=== PATIENT | male | born 1940 | race Caucasian/White ===

== ENCOUNTER → 2016-10-04 12:54 | Outpatient (CLI) | payer MEDICARE, OTHER ==
[2014-09-04 08:52] VITALS: BMI 32.1
[~2016-10-04 12:54] MED LIST: ASPIRIN 81 MG E81 MG PO; CARDURA4 MG PO; IBUPROFEN400 MG PO; MIRAPEX0.125 MG PO; MIRAPEX0.25 MG PO; PAXIL30 MG; PLAVIX75 MG PO; PRAVACHOL20 MG PO; TRAZODONE HCL150 MG PO; TYLENOL 8 HOUR650 MG; ZESTRIL40 MG
== END | disposition home or self-care (01) ==
LOC: D.MRI 12:54
DX: M54.16 Radiculopathy, lumbar region (principal)

== ENCOUNTER 2018-03-24 10:43 | Emergency (ER) | payer MEDICARE, MEDICAID ==
[~2018-03-24] VITALS: Ht 180.3 cm; Wt 106.8 kg
[2018-03-24 10:50] VITALS: Ht 180.3 cm; Wt 106.8 kg
[2018-03-24 11:18] LABS: BASOPHILS 0.3 % (0-2); HEMATOCRIT 42.1 % (42.0-54.0); HEMOGLOBIN 13.9 g/dL (13.5-17.5); IMMATURE GRANULOCYTES 0.2 % (0-5); LYMPHOCYTES 37.3 % (15-50); MCV 90.9 fL (80.0-100.0); MONOCYTES 8.3 % (2-11); NEUTROPHILS 50.9 % (40-80); PLATELET COUNT 193 10x3/uL (130-400); RBC 4.63 10x6/uL (4.20-6.10); RDW 13.7 % (11.5-14.5); WBC 6.3 10x3/uL (4.8-10.8)
[2018-03-24 11:29] LABS: ALBUMIN 3.5 g/dL (3.4-5.0); ALKALINE PHOSPHATASE 65 U/L (46-116); ALT (SGPT) 16 U/L (10-68); BILIRUBIN - TOTAL 0.37 mg/dL (0.2-1.3); CALC OSMOLALITY 286 mosm/kg (275-300); CALCIUM 8.8 mg/dL (8.5-10.1); CARBON DIOXIDE 28.4 mmol/L (21.0-32.0); CHLORIDE - SERUM 106 mmol/L (98-107); CREATININE - SERUM 1.7 mg/dL (0.6-1.3); GLUCOSE 92 mg/dL (74-106); POTASSIUM - SERUM 4.1 mmol/L (3.5-5.1); PROTEIN - SERUM 7.5 g/dL (6.4-8.2); SODIUM 141 mmol/L (136-145); UREA NITROGEN 30 mg/dL (7-18); eGFR NON AFRICAN AMERICAN 42 mL/min (90-120)
[2018-03-24 11:36] LABS: APTT 28.3 SECONDS (22.8-39.4); INR 1.08 (0.85-1.17); PROTIME 13.5 SECONDS (11.6-15.0)
[2018-03-24 11:41] LABS: CKMB 4.1 U/L (0.0-3.6); CREATINE KINASE 186 UL (21-232); PRO BNP 28 pg/mL (0-450)
[2018-03-24 11:42] LABS: TROPONIN-I < 0.017 ng/mL (0.000-0.060)
[2018-03-24] MEDS ORDERED: ISOSORBIDE MONO30 M1 PO (12:23)
[2018-03-24 12:42] VITALS: BP 147/75
== END 2018-03-24 12:45 | disposition home or self-care (01) ==
LOC: D.ER 10:43
PROVIDERS: Family Medicine
DX: R06.09 Other forms of dyspnea (principal); R07.9 Chest pain, unspecified; N28.9 Disorder of kidney and ureter, unspecified; R53.1 Weakness; I10 Essential (primary) hypertension; G47.30 Sleep apnea, unspecified; N42.9 Disorder of prostate, unspecified; I49.3 Ventricular premature depolarization; I45.10 Unspecified right bundle-branch block

== ENCOUNTER → 2019-01-02 09:46 | Outpatient (CLI) | payer MEDICARE, MEDICAID ==
[2018-03-24 10:50] VITALS: BMI 32.8
[~2019-01-02 09:46] MED LIST changes: +ISOSORBIDE MONO30 M1 PO
--- NOTE | 2019-01-04 08:12 | EC ---
PATIENT:AN JONES DATE OF SERVICE: 01/02/19 SEX: M MEDICAL RECORD: [id number] DATE OF : 42 LOCATION:D.[facility] AGE OF PATIENT: 78 ADMISSION DATE: 01/02/19 REFERRING PHYSICIAN: INTERPRETING PHYSICIAN: FRANKI VARNER MD ECHOCARDIOGRAM REPORT ECHO CHARGES 4 ECHO COMPLETE Date: 01/02/19 CLINICAL DIAGNOSIS: CAD/SSESS EF AND VALVES, HX OF AFIB/HTN ECHOCARDIOGRAPHIC MEASUREMENTS (adult normal given) AC root (d.<3.7cm) 3.8 cm LV Septum d (<1.2 cm> 1.6 cm Valve Excursion 2.0 cm LV Septum (systole) 1.8 cm Left Atria (s.<4.0cm> 4.5 cm LVPW d(<1.2cm) 1.8 cm RV (d.<2.3cm) 4.6 cm LVPW (sytole) 2.0 cm LV diastole(<5.6CM) 5.3 cm MV E-F(>70mm/sec) cm LV systole 3.2 cm LVOT Diameter 2.1 cm MV exc.(>10mm) 1.7 cm Est.ejection fraction (50-75%) % DOPPLER: LVIT cm/sec A 86.0 cm/sec E 68.0 cm/sec LA cm/sec RVSP 24 mmHg LVOT 90 cm/sec AOP1/2T m/s Asc. Ao 151 cm/sec RVOT 80 cm/sec RA cm/sec PA 136 cm/sec AV Gradient Peak 9.14 mmHg AV Mean 4.19 mmHg AV Area 2.3 cm MV Gradient Peak 4.00 mmHg MV Mean 1.11 mmHg MV Area cm COMMENTS: Carpenter Cradle And Dolly: 2 MACY BRISENO Potato Grader: 3 Dr. Pratt TAPE# PACS Pericardial Effusion N DATE OF SERVICE: Adequate 2D, color flow imaging, spectral Doppler, and M-mode. LVH is present. LV internal dimensions are normal. Wall motion is normal. EF greater than or equal to 55%. Aortic valve is sclerosed without stenosis by Doppler interrogation. Left atrium is dilated at 4.5 cm. Mitral valve shows no prolapse. Mild MR. Right-sided chambers is grossly. Mild TR. TRANSINT:[id number] Voice Confirmation ID: [id number] DOCUMENT ID: [id number] ECHOCARDIOGRAM REPORT [id number] AN JONES,FRANKI Parkinson MD at 0812 CC: [id number] DICTATION DATE: 01/03/19 1342 CHIEF TALENT OFFICER: 01/03/192101 DEP CLI 01/02/19 [place] [id number] [place] [id number]
== END | disposition home or self-care (01) ==
LOC: D.HCCECHO 09:46 → D.HCCARDIO 10:00 → D.HCCECHO 10:00
PROVIDERS: ATTEND Internal Medicine Interventional Cardiology
DX: I25.10 Atherosclerotic heart disease of native coronary artery without angina pectoris (principal)

== ENCOUNTER 2019-02-13 09:26 | Day surgery (SDC) | payer MEDICARE, MEDICAID ==
[2019-02-12 12:04] LABS: HEMATOCRIT 42.7 % (42.0-54.0); HEMOGLOBIN 14.2 g/dL (13.5-17.5); MCH 31.3 pg (26.0-34.0); MCHC 33.3 g/dL (31.0-37.0); MCV 94.1 fL (80.0-100.0); MEAN PLATELET VOLUME 9.3 fL (7.4-10.4); RBC 4.54 10x6/uL (4.20-6.10); RDW 13.8 % (11.5-14.5); WBC 6.6 10x3/uL (4.8-10.8)
[~2019-02-13] VITALS: Ht 180.3 cm; Wt 103.4 kg
[2019-02-13 07:22] VITALS: BP 128/65; Ht 180.3 cm; Wt 103.4 kg
[~2019-02-13 09:26] MED LIST changes: +GABAPENTIN100 MG PO; -PAXIL30 MG; +PAXIL40 MG PO; +SEROQUEL50 MG PO; +SINEMET 25-1001 EAC1 PO; -ZESTRIL40 MG; +ZESTRIL40 MG PO
--- NOTE | 2019-02-13 10:55 | OP ---
PATIENT NAME: AN JONES MEDICAL RECORD: [id number] :42 LOCATION:D.OPS ADMISSION DATE: SURGEON: HÉCTOR JIMENEZ MD DATE OF OPERATION: 02/13/2019 SURGEON: Héctor Jimenez MD. ANESTHESIA: TIVA by René Martinez CRNA. DIAGNOSES: Elevated PSA of 5.04 (01/05/2019), bladder outlet obstruction. PROCEDURE: Cystoscopy, transrectal ultrasound (TRUS), and prostate biopsy SPECIMEN: Prostate biopsy cores. FINDINGS: On cystoscopy, bilateral lateral lobe hyperplasia of the prostate with a long prostatic urethra. No median lobe seen. There is a trabeculated bladder without bladder tumors. Single ureteral orifices are seen bilaterally. On transrectal ultrasound, he has a 73-gram prostate with a very tall anterior posterior dimension. Internal hypoechoic areas are seen in various areas of the prostate. BLOOD LOSS: Minimal. CLINICAL HISTORY: This is a 78-year-old male, who was referred with an elevated PSA of 5.04. He has obstructive voiding symptoms including urge incontinence with hesitancy, slow urinary flow and postvoid dribbling. He has nocturia times 2. IPSS score was 26 and quality of life score is 5. There is no family history of prostate cancer. On digital rectal examination, he has a 70-gram prostate with no nodules palpated. He is allergic to no medications. He was given Ancef supervising floorperson to the OR. DESCRIPTION OF PROCEDURE: The patient was given IV sedation. He was then placed into lithotomy position and prepped and draped. A 17-Yi cystoscope with 30-degree lens was used for visualization. Findings are as outlined above. The scope was then used to empty the bladder and then the scope was removed. We then introduced the transrectal ultrasound probe. Prostate size measurements were obtained and we found a very large gland at 73 grams. Sextant biopsies were then obtained with at least 3 cores from each sextant. Once all the specimens were obtained, then the procedure was terminated. I will see the patient in followup next week to review the pathology with him. TRANSINT:[id number] Voice Confirmation ID: [id number] DOCUMENT ID: [id number] HÉCTOR JIMENEZ MD at 1051 CC: [id number] DICTATION DATE: 02/13/19 1029 ACCOUNTING TECHNICIAN: 02/13/19 1042 [facility] [address] [place] [id number]
--- NOTE | 2019-02-13 13:00 | NUR ---
1140 IV COMLPLETED & DC'ED WITH CATH INTACT. DRESSING. Rhys RIVERA R.N. 1155 DRESSED, AWAKE & ALERT. GIVEN DISCHARGE INFORMATION INCLUDING: MED REC, RTC APPT, [facility] D/C INSTRUCTIONS & POST PROSTATE BIOPSY & CYSTOSCOPY D/C INSTRUCTIONS. PT VOICED UNDERSTANDING. TO PRIVATE CAR PER WHEELCHAIR BY STAFF. HOME WITH MRS. JONES. Rhys RIVERA R.N.
[2019-03-14] MEDS ORDERED: SEROQUEL50 MG PO (07:58)
== END 2019-02-13 11:55 | disposition home or self-care (01) ==
LOC: D.OPS 09:26
PROVIDERS: Anesthesiology; ATTEND Urology
DX: N32.0 Bladder-neck obstruction (principal); R97.20 Elevated prostate specific antigen [PSA]

== ENCOUNTER 2019-03-15 07:50 | Day surgery (SDC) | payer MEDICARE, MEDICAID ==
[2019-03-14 08:42] LABS: HEMATOCRIT 40.8 % (42.0-54.0); HEMOGLOBIN 13.2 g/dL (13.5-17.5); MCHC 32.4 g/dL (31.0-37.0); MCV 95.8 fL (80.0-100.0); MEAN PLATELET VOLUME 9.7 fL (7.4-10.4); RBC 4.26 10x6/uL (4.20-6.10); RDW 14.1 % (11.5-14.5); WBC 4.2 10x3/uL (4.8-10.8)
[~2019-03-15] VITALS: Ht 180.3 cm; Wt 102.1 kg
[2019-03-15 08:21] VITALS: Ht 180.3 cm; Wt 102.1 kg
--- NOTE | 2019-03-15 11:06 | OP ---
PATIENT NAME: AN JONES MEDICAL RECORD: [id number] :42 LOCATION:D.OPS ADMISSION DATE: SURGEON: HÉCTOR JIMENEZ MD DATE OF OPERATION: 03/15/2019 SURGEON: Héctor Jimenez MD ANESTHESIA: TIVA by Modesto Buenrostro CRNA DIAGNOSES: Obstructive benign prostatic hyperplasia, Parkinson's disease. PSA 5.04. Transrectal ultrasound shows a 73 gram prostate. IPSS is 26. Quality of life score is 5. PROCEDURE: UroLift times 6. FINDINGS: Long obstructive bilateral lateral lobes of the prostate. No median lobe. Prostatic urethra is vasculature. There are single ureteral orifices bilaterally without bladder tumors being seen. The bladder mucosa was inflamed. There are trabeculations, cellules, and diverticula in the bladder wall. ESTIMATED BLOOD LOSS: Minimal. CLINICAL HISTORY: This is a 78-year-old male with Parkinson's disease. He had an elevated PSA of 5.04 and he underwent a transrectal ultrasound, cystoscopy and prostate biopsy. The findings are as outlined above. The biopsy was benign. He has significant voiding symptoms and he wishes to have the UroLift procedure done. He is not allergic to any medications. He was given Ancef 2 grams IV concrete stone finisher to the OR. DESCRIPTION OF PROCEDURE: The patient was given IV sedation. Even though he was fully sedated, he continued to have irregular movements of his legs due to his Parkinson's disease. The UroLift scope was introduced. Findings are as outlined above. We placed 2 units 1.5 cm distal to the bladder neck with 1 unit being placed on each side at the anterolateral sulcus. Then, we placed 2 more units at the level of the verumontanum. These were placed at the anterolateral sulcus with 1 unit being placed on each side. Looking in with the obturator, there was still an obstruction in the mid urethra. We placed 2 units in the mid urethra at the mid distance from anterior to posterior. One unit was placed on each side. This now created a nice urethral channel. Due to the vascularity of the prostate, there was some bleeding. I inserted a 16-Kiswahili Srinivasan catheter without any issues. This was put to bag drainage. The balloon has 10 cc of sterile water in it. He will be going home with the Srinivasan catheter and I will see him next week to remove the Srinivasan catheter for a voiding trial. TRANSINT:[id number] Voice Confirmation ID: [id number] DOCUMENT ID: [id number] HÉCTOR JIMENEZ MD at 1106 CC: [id number] DICTATION DATE: 03/15/19 1025 PLANT ATTENDANT OR ASSISTANT OPERATOR: 03/15/19 1039 [facility] [address] [place] [address]
--- NOTE | 2019-03-15 14:52 | NUR ---
1021-REC'D FROM SURGERY. DROWSY,EASILY AROUSED,DENIES PAIN,VSS. IV PATENT AT KVO. BA DRAINING AT GRAVITY,RED URINE.
--- NOTE | 2019-03-15 14:56 | NUR ---
1212- IV REMOVED WITH CATH INTACT,DISPOSED INTO SHARPS,COVERED SITE WTIH BANDAID.
--- NOTE | 2019-03-15 14:58 | NUR ---
1235-DRESSED,VSS.DENIES PAIN. BA PATENT DRAINING REDDISH URINE AT O. REVIEWED POST OPERATIVE INSTRUCTIONS WITH PT AND SPOUSE. VERBALIZED UNDERSTANDING.ESCORTED OUT VIA W/C WITH SPOUSE AWAITING TO DRIVE HOME.
== END 2019-03-15 12:35 | disposition home or self-care (01) ==
LOC: D.OPS 07:50
PROVIDERS: Anesthesiology; ATTEND Urology
DX: N40.1 Benign prostatic hyperplasia with lower urinary tract symptoms (principal); N13.8 Other obstructive and reflux uropathy; G20 Parkinson's disease; K21.9 Gastro-esophageal reflux disease without esophagitis; I10 Essential (primary) hypertension

== ENCOUNTER → 2019-04-03 09:48 | Outpatient (CLI) | payer MEDICARE, MEDICAID ==
[2019-03-15 08:21] VITALS: BMI 31.4
[2019-04-03 10:26] LABS: BASOPHILS 0.2 % (0-2); EOSINOPHILS 1.8 % (0-7); HEMATOCRIT 39.5 % (42.0-54.0); HEMOGLOBIN 12.9 g/dL (13.5-17.5); IMMATURE GRANULOCYTES 0.4 % (0-5); LYMPHOCYTES 42.2 % (15-50); MCHC 32.7 g/dL (31.0-37.0); MEAN PLATELET VOLUME 9.5 fL (7.4-10.4); MONOCYTES 9.5 % (2-11); NEUTROPHILS 45.9 % (40-80); PLATELET COUNT 210 10x3/uL (130-400); RBC 4.16 10x6/uL (4.20-6.10); WBC 5.1 10x3/uL (4.8-10.8)
== END | disposition home or self-care (01) ==
LOC: D.LAB 09:48
PROVIDERS: ATTEND Urology
DX: R31.0 Gross hematuria (principal)

== ENCOUNTER → 2019-04-13 17:07 | Outpatient (CLI) | payer MEDICARE, MEDICAID ==
[2019-03-15 08:21] VITALS: BMI 31.4
== END | disposition home or self-care (01) ==
LOC: D.LABREF 17:07
PROVIDERS: ATTEND Urology
DX: R31.9 Hematuria, unspecified (principal)

== ENCOUNTER 2019-06-23 08:39 | Inpatient (IN) | payer MEDICARE, MEDICAID ==
[~2019-06-23] VITALS: Ht 180.3 cm; Wt 101.8 kg
--- NOTE | 2019-06-23 08:53 | NUR ---
SAT 88% ON RA, PLACED ON 2LPM NC
[2019-06-23 09:30] LABS: BASOPHILS 0.1 % (0-2); EOSINOPHILS 0.6 % (0-7); HEMATOCRIT 32.3 % (42.0-54.0); HEMOGLOBIN 10.3 g/dL (13.5-17.5); IMMATURE GRANULOCYTES 1.4 % (0-5); LYMPHOCYTES 43.1 % (15-50); MCH 31.2 pg (26.0-34.0); MCHC 31.9 g/dL (31.0-37.0); MCV 97.9 fL (80.0-100.0); MEAN PLATELET VOLUME 9.4 fL (7.4-10.4); MONOCYTES 9.8 % (2-11); PLATELET COUNT 168 10x3/uL (130-400); RDW 14.3 % (11.5-14.5); WBC 7.2 10x3/uL (4.8-10.8)
[2019-06-23 09:36] LABS: APTT 29.8 SECONDS (22.8-39.4); INR 1.12 (0.85-1.17); PROTIME 14.4 SECONDS (11.6-15.0)
[2019-06-23 09:44] LABS: CALC OSMOLALITY 287 mosm/kg (275-300); CALCIUM 8.8 mg/dL (8.5-10.1); CARBON DIOXIDE 28.5 mmol/L (21.0-32.0); CHLORIDE - SERUM 103 mmol/L (98-107); CREATININE - SERUM 2.9 mg/dL (0.6-1.3); GLUCOSE 94 mg/dL (74-106); POTASSIUM - SERUM 4.7 mmol/L (3.5-5.1); SODIUM 136 mmol/L (136-145); UREA NITROGEN 56 mg/dL (7-18); eGFR NON AFRICAN AMERICAN 22 mL/min (90-120)
[2019-06-23 09:46] VITALS: BP 169/82
[2019-06-23 10:01] LABS: ALBUMIN 3.1 g/dL (3.4-5.0); ALKALINE PHOSPHATASE 78 U/L (30-120); ALT (SGPT) 33 U/L (10-68); BILIRUBIN - TOTAL 0.41 mg/dL (0.2-1.3); CKMB 5.5 U/L (0.0-3.6); CREATINE KINASE 271 UL (21-232); PRO BNP 75 pg/mL (0-450); PROTEIN - SERUM 7.8 g/dL (6.4-8.2); THYROID STIMULATING HORMONE 1.51 uIU/mL (0.36-3.74)
[2019-06-23 10:03] LABS: TROPONIN-I < 0.017 ng/mL (0.000-0.060)
--- NOTE | 2019-06-23 10:03 | NUR ---
PT VERY SEDATED ON ARRIVAL, IS AWAKE AND TALKING NOW.
[2019-06-23 10:49] LABS: BILIRUBIN NEGATIVE (NEGATIVE); GLUCOSE NEGATIVE (NEGATIVE); KETONE NEGATIVE (NEGATIVE); NITRITE NEGATIVE (NEGATIVE); SPECIFIC GRAVITY 1.015 (1.005-1.020); UROBILINOGEN NORMAL (NORMAL)
[2019-06-23 11:22] VITALS: BP 109/69
[2019-06-23 12:27] VITALS: BP 148/62; BMI 31.3
[2019-06-23 12:48] VITALS: Ht 180.3 cm; Wt 101.8 kg
[2019-06-23 14:30] LABS: % SATURATION 9 % (15-55); IRON 22 ug/dl (35-150); TOTAL IRON BIND CAPACITY 234 ug/dl (260-445); UNSAT IRON BIND CAPACITY 212 ug/dl (150-375)
[2019-06-23 14:54] LABS: CKMB 6.2 U/L (0.0-3.6); CREATINE KINASE 250 UL (21-232); FERRITIN 510 ng/mL (3-244); TROPONIN-I < 0.017 ng/mL (0.000-0.060); URIC ACID 7.8 mg/dL (2.6-7.2)
[2019-06-23 15:32] VITALS: BP 135/54
[2019-06-23 20:21] LABS: CKMB 4.7 U/L (0.0-3.6); CREATINE KINASE 219 UL (21-232)
[2019-06-23 20:24] LABS: TROPONIN-I < 0.017 ng/mL (0.000-0.060)
[2019-06-23 20:30] VITALS: BP 123/65
[2019-06-23] MEDS ORDERED: PAXIL40 MG PO (21:57)
[2019-06-23] MEDS ORDERED: REVLIMID5 MG PO (21:58)
[2019-06-23] MEDS ORDERED: ONDANSETRON ODT8 MG PO (21:59)
[2019-06-23] MEDS ORDERED: ROXICODONE15 MG PO (21:59)
[2019-06-23] MEDS ORDERED: ATIVAN0.5 MG PO (22:00)
[2019-06-23] MEDS ORDERED: DECADRON4 MG PO (22:00)
[2019-06-23] MEDS ORDERED: LISINOPRIL40 MG PO (22:01)
--- NOTE | 2019-06-23 22:16 | NUR ---
INITIAL ROUNDS COMPLETED AT 1909 HRS. PT EATING DINNER. NO DISTRESS NOTED. ASSESSMENT COMPLETED AT 1944 HRS. VSS. SR WITH BBB PER CM HR 84. ALERT AND ORIENTED TO PERSON, PLACE, AND TIME. BARNETT. MILD TREMOR NOTED TO BILAT UPPER EXTREMITIES. IV TO L HAND WITH NS AT 100CC/HR. IV TO RAC SL. PT AMBULATED APPROX 100 FEET USING A CANE, DAUGHTER AT SIDE WITH W/C. PT BECAME ANXIOUS SOON AFTER WALKING. DAUGHTER REQUESTING ATIVAN. FAMILY ARRIVED AT 2124 HRS. PT BECAME HOSTILE TO FAMILY. PM MEDS GIVEN AT 2026 HRS. ASSISTED TO W/C BY SON AND PUSHED AROUND UNIT. REVIEWED HOME MEDS WITH FAMILY. Jack ALTMAN APN PAGED AT 2049 HRS. RETURNS CALL WITHIN 5 MINUTES. DISCUSSED PT'S HISTORY, CURRENT MEDS, NARCAN IN ER AND OVERALL STATUS. NEW ORDERS RECEIVED AND NOTED. ATIVAN 0.5MG PO GIVEN AT 2126 HRS. PT CURRENTLY IN BED WITH FAMILY AT BEDSIDE. SR UP X2, CALL LIGHT WITHIN REACH. O2 3LNC.
--- NOTE | 2019-06-23 23:19 | NUR ---
PT RESTING WITH EYES CLOSED. RESP EVEN AND REGULAR. DAUGHTER AT BEDSIDE. SR UP X2, CALL LIGHT WITHIN REACH.
[2019-06-24 00:30] VITALS: BP 110/66
--- NOTE | 2019-06-24 02:41 | NUR ---
ASSSITED PT TO BR AT 0155 HRS. GAIT UNSTEADY. PT REFUSED TO USE URINAL OR BSC. VOIDED MODERATE AMOUNT OF URINE. ASSISTED BACK TO BED. DAUGHTER AT BEDSIDE. SR UP X2, CALL LIGHT WITHIN REACH AND FAMILY AT BEDSIDE.
[2019-06-24 03:05] VITALS: BP 137/48
--- NOTE | 2019-06-24 03:17 | NUR ---
PT AGITATED AT 0240 HRS. ATTEMPTING TO CRAWL OUT OF BED NUMEROUS TIME. ORIENTED TO PERSON ONLY. PT WENT INTO UCAF AT 0250 HRS HR 136. PERSAUDED PT TO LIE DOWN AND ATTEMPT TO GET SOME SLEEP. VSS STABLE. PT BACK TO SR NR 88 AT 0315 HRS. ASSISTED TO BR AT 0325 HRS. GAIT UNSTEADY. PT VOIDED MODERATE AMOUNT OF URINE. ASSISTED BACK TO BED. PT AHS C/O LOWER BVACK PAIN. DECLINED OFFER FOR 2MG MORPHINE AT THIS TIME. SR UP X2, CALL LIGHT WITHIN REACH AND BED ALARM ON.
--- NOTE | 2019-06-24 04:11 | NUR ---
PT IN W/C WIHT JENNIFER PUSHING IT DOWN HALLS. O2 2LNC. NO DISTRESS NOTED.
[2019-06-24 04:30] VITALS: BP 118/52
[2019-06-24 05:30] LABS: BASOPHILS 0.1 % (0-2); EOSINOPHILS 0.3 % (0-7); HEMOGLOBIN 11.3 g/dL (13.5-17.5); IMMATURE GRANULOCYTES 1.1 % (0-5); LYMPHOCYTES 32.7 % (15-50); MCH 31.7 pg (26.0-34.0); MCHC 32.3 g/dL (31.0-37.0); MEAN PLATELET VOLUME 9.5 fL (7.4-10.4); MONOCYTES 10.2 % (2-11); NEUTROPHILS 55.6 % (40-80); PLATELET COUNT 165 10x3/uL (130-400); RBC 3.57 10x6/uL (4.20-6.10); RDW 14.4 % (11.5-14.5); WBC 7.4 10x3/uL (4.8-10.8)
[2019-06-24 05:46] LABS: ANION GAP 12.1 mmol/L (8-16); CARBON DIOXIDE 25.7 mmol/L (21.0-32.0); POTASSIUM - SERUM 4.8 mmol/L (3.5-5.1)
--- NOTE | 2019-06-24 06:21 | NUR ---
VSS THIS AM. SR WITH BBB AND PAC'S PER CM HR 88. RESTING WITH EYES CLOSED AT THIS TIME. RESP EVEN AND REGULAR. UP NUMEROUS TIMES TO URINATE. VERY UNSTEADY ON FEET. SON AT BEDSIDE. SR UP X2,CALL LIGHT WITHIN REACH AND BED ALARM ON.
[2019-06-24 08:06] VITALS: BP 98/47
--- NOTE | 2019-06-24 09:59 | NUR ---
UP [facility] IN W/C WITH . TELEMETRY SR. WILL CONT. PLAN OF CARE.
--- NOTE | 2019-06-24 10:51 | NUR ---
UP AMBULATING WITH PT ASSIST.
[2019-06-24 11:47] VITALS: BP 124/44
[2019-06-24] MEDS ORDERED: RANEXA500 MG PO (14:10)
--- NOTE | 2019-06-24 15:16 | NUR ---
IV AND TELEMETRY DCD. DC PLANS GIVEN. UNDERSTANDING VOICED. ESCORTED TO CAR BY W/C.
--- NOTE | 2019-06-25 09:08 | MORECARE ---
CASE MANAGEMENT DISCHARGE SUMMARY PATIENT: AN JONES UNIT: [id number] ADM DATE: 06/23/19 AGE: 79 : 41 SEX: M ROOM/BED: D.2117 AUTHOR: VIKTORIA LEY PHYSICIAN: REFERRING PHYSICIAN: ROCKY ESPOSITO MD DATE OF SERVICE: 06/25/19 Discharge Plan Patient Name: [facility]ONES [facility] [facility] 1940 Planned Disposition: Home Anticipated Discharge Date: 06/24/19 Discharge Date: 06/24/2019 Expected LOS: 1 Initial Reviewer: [email or web address] Initial Review Date: 06/25/2019 Generated: 06/25/19 10:08 am Patient Name: AN JONES Page [phone] at 0908 All edits/amendments must be made on the electronic document DICTATION DATE: 06/25/19 09 DOCK COORDINATOR: TUAN 06/25/19 09 RPT#: [id number] DC DATE:06/24/19 STATUS: DIS IN [facility] [address] [place] [address] END OF REPORT
--- NOTE | 2019-06-27 08:18 | CN ---
PATIENT NAME:AN JONES MEDICAL RECORD: [id number] : 42 LOCATION:D. D.2117 ADMIT DATE: 06/23/19 ACCOUNT: [id number] CONSULTING PHYSICIAN: FRANKI VARNER MD REFERRING PHYSICIAN: ROCKY ESPOSITO MD DATE OF CONSULTATION: 06/23/2019 HISTORY OF PRESENT ILLNESS: A 79-year-old gentleman who presents to me with a history of coronary artery disease, status post intervention approximately 4 years ago, has had intermittent angina that time. He has been feeling poorly for the past few months, was diagnosed recently with multiple myeloma, who has been undergoing chemotherapy, generalized downward course with activities of daily living, was admitted here with chest pain, mental status changes, also noted to have elevated creatinine consistent with intravascular volume depletion and is on chemotherapy. Mental status he had response some to Narcan. We are asked to see him concerning his cardiovascular status. PAST MEDICAL HISTORY: Includes: 1. History of coronary artery disease described above. 2. Parkinson's disease. 3. Dyslipidemia. 4. Hypertension. ALLERGIES: None known. MEDICATIONS: Sinemet 25/100 two tablets q.i.d., Neurontin 300 at bedtime, and Seroquel 50 at bedtime. SOCIAL HISTORY: . Nonsmoker and nondrinker. has had more trouble with ADLs as of late. REVIEW OF SYSTEMS: The patient reports easy bruising but reports no swollen glands. The patient reports no fever, no night sweats, no significant weight gain, no significant weight loss. No significant exercise tolerance. The patient reports no dry eyes, no irritation, no vision change. Patient reports no difficulty hearing and no ear pain. Patient reports no frequent nose bleeds or nose and sinus problems. Patient reports on arm pain on exertion. No shortness of breath while lying down. No history of heart murmur. Patient reports no cough, no wheezing or coughing up blood. Patient reports no abdominal pain, no vomiting. Normal appetite. No diarrhea and not vomiting blood. No nausea and no constipation. Patient reports no incontinence. No difficulty urinating. No hematuria. No increased frequency. Patient reports no muscle aches. No weakness, no arthralgias, no back pain. No swelling of the extremities. Patient reports no abnormal mole, no jaundice, no rashes. Reports no loss of consciousness. No weakness and no numbness. No seizures, dizziness, or headaches. The patient reports no depression, no sleep disturbance, feeling safe in a relationship and no alcohol abuse. Patient reports on fatigue. Reports no runny nose or sinus pressure. No itching, no hives, and no frequent sneezing. PHYSICAL EXAMINATION: GENERAL: Well-developed, well-nourished, appears stated age. VITAL SIGNS: 101/43, pulse 74 and regular. HEENT: Normocephalic, atraumatic. NECK: No bruits noted. CONSULT REPORT [id number] AN JONES HEART: Regular. A II/ systolic ejection murmur. LUNGS: Fair air excursion. ABDOMEN: Soft, nontender. EXTREMITIES: Pulses well preserved, 2+. There is no edema. DIAGNOSTIC DATA: EKG shows a right bundle left axis, no acute ST-T changes from previous EKG. IMPRESSION: Certainly, could be having a component of angina, given overall clinical status typically creatinine of 2.9. I agree right now with hydration. We will check echocardiographic study to assess LV function, empirically start Ranexa for angina control, certainly would prefer to wait on angiography if we can secondary to elevated creatinine and overall general status. TRANSINT:[id number] Voice Confirmation ID: [id number] DOCUMENT ID: [id number] FRANKI VARNER MD at 0818 CC: [id number] DICTATION DATE: 06/23/19 1221 ROPING TENDER: 06/24/19 0105 DIS IN 06/24/19 [address] [address] [place] [address]
--- NOTE | 2019-06-27 08:19 | EC ---
PATIENT:AN JONES DATE OF SERVICE: 06/23/19 SEX: M MEDICAL RECORD: [id number] DATE OF : 42 LOCATION:D.M2 D.211 AGE OF PATIENT: 79 ADMISSION DATE: 06/23/19 REFERRING PHYSICIAN: INTERPRETING PHYSICIAN: FRANKI VARNER MD ECHOCARDIOGRAM REPORT ECHO CHARGES 4 ECHO COMPLETE Date: 06/24/19 CLINICAL DIAGNOSIS: CAD ECHOCARDIOGRAPHIC MEASUREMENTS (adult normal given) AC root (d.<3.7cm) 4.2 cm LV Septum d (<1.2 cm> 1.5 cm Valve Excursion 2.1 cm LV Septum (systole) 1.7 cm Left Atria (s.<4.0cm> 4.2 cm LVPW d(<1.2cm) 1.4 cm RV (d.<2.3cm) 3.6 cm LVPW (sytole) 2.0 cm LV diastole(<5.6CM) 5.2 cm MV E-F(>70mm/sec) cm LV systole 2.8 cm LVOT Diameter cm MV exc.(>10mm) 1.8 cm Est.ejection fraction (50-75%) % DOPPLER: LVIT cm/sec A 82.0 cm/sec E 65.0 cm/sec LA cm/sec RVSP mmHg LVOT 107 cm/sec AOP1/2T m/s Asc. Ao 1659 cm/sec RVOT 76 cm/sec RA cm/sec PA 97 cm/sec AV Gradient Peak 10.17mmHg AV Mean 5.32 mmHg AV Area 3.8 cm MV Gradient Peak 4.30 mmHg MV Mean 1.53 mmHg MV Area cm COMMENTS: Glass Embosser: 2 MACY BRISNEO Bandoleer Straightener Stamper: 3 Dr. Pratt TAPE# PACS Pericardial Effusion N DATE OF SERVICE: Adequate 2D, color flow and spectral Doppler, M-Mode. LVH is present. LV internal dimensions are normal. Wall motion is normal. EF is greater than or equal to 55%. Aortic valve is tricuspid. No evidence of stenosis by Doppler interrogation. Left atrium is mildly dilated at 4.2 cm. Mitral valve shows no prolapse. Trace MR. Right-sided chambers are grossly normal. Trace TR. ECHOCARDIOGRAM REPORT [id number] AN JONES TRANSINT:[id number] Voice Confirmation ID: [id number] DOCUMENT ID: [id number] FRANKI VARNER MD at 0819 CC: [id number] DICTATION DATE: 06/25/19923 FORGING ENGINEER: 06/25/19 1057 DIS IN 06/24/19 [place] [id number] [place] [address]
== END 2019-06-24 15:20 | disposition home or self-care (01) | DRG 683 ==
LOC: D.ER 08:39 → D.M2 10:15
PROVIDERS: Emergency Medicine; ADMIT Internal Medicine Nephrology; ATTEND Internal Medicine Nephrology
DX: N17.9 Acute kidney failure, unspecified (principal); C90.00 Multiple myeloma not having achieved remission; C79.51 Secondary malignant neoplasm of bone; I95.2 Hypotension due to drugs; I25.119 Atherosclerotic heart disease of native coronary artery with unspecified angina pectoris; G20 Parkinson's disease; I48.91 Unspecified atrial fibrillation; N40.0 Benign prostatic hyperplasia without lower urinary tract symptoms; T40.2X5A Adverse effect of other opioids, initial encounter; I12.9 Hypertensive chronic kidney disease with stage 1 through stage 4 chronic kidney disease, or unspecified chronic kidney disease; N18.9 Chronic kidney disease, unspecified; D63.1 Anemia in chronic kidney disease; I25.9 Chronic ischemic heart disease, unspecified; Z86.73 Personal history of transient ischemic attack (TIA), and cerebral infarction without residual deficits

== ENCOUNTER 2020-01-15 05:16 | Inpatient (IN) | payer MEDICARE, MEDICAID ==
[2020-01-15] VITALS (7 sets, daily range): BP systolic 120–162; BP diastolic 61–90; Ht 180.3 cm; Wt 104.5 kg
[~2020-01-15] VITALS: Ht 180.3 cm; Wt 104.5 kg
[~2020-01-15 05:16] MED LIST changes: +ATIVAN0.5 MG PO; +DECADRON4 MG PO; +LISINOPRIL40 MG PO; +ONDANSETRON ODT8 MG PO; +RANEXA500 MG PO; +REVLIMID5 MG PO; +ROXICODONE15 MG PO
[2020-01-15 06:22] LABS: BASOPHILS 0.4 % (0-2); EOSINOPHILS 0 % (0-7); HEMATOCRIT 25.9 % (42.0-54.0); HEMOGLOBIN 8.2 g/dL (13.5-17.5); IMMATURE GRANULOCYTES 5.8 % (0-5); MCH 28.4 pg (26.0-34.0); MCHC 31.7 g/dL (31.0-37.0); MCV 89.6 fL (80.0-100.0); MONOCYTES 2.4 % (2-11); NEUTROPHILS 66.4 % (40-80); RBC 2.89 10x6/uL (4.20-6.10); RDW 17.1 % (11.5-14.5)
[2020-01-15 06:23] LABS: CALC OSMOLALITY 289 mosm/kg (275-300); CALCIUM 11.5 mg/dL (8.5-10.1); CARBON DIOXIDE 32.6 mmol/L (21.0-32.0); CHLORIDE - SERUM 103 mmol/L (98-107); CREATININE - SERUM 2.1 mg/dL (0.6-1.3); GLUCOSE 146 mg/dL (74-106); PLATELET COUNT 94 10x3/uL (130-400); POTASSIUM - SERUM 3.4 mmol/L (3.5-5.1); SODIUM 138 mmol/L (136-145); UREA NITROGEN 44 mg/dL (7-18); eGFR NON AFRICAN AMERICAN 32 mL/min (90-120)
[2020-01-15 06:27] LABS: APTT 36.1 SECONDS (22.8-39.4); INR 1.32 (0.85-1.17); PROTIME 16.2 SECONDS (11.6-15.0)
[2020-01-15 07:01] LABS: ALBUMIN 2.6 g/dL (3.4-5.0); ALKALINE PHOSPHATASE 100 U/L (30-120); ALT (SGPT) 23 U/L (10-68); BILIRUBIN - TOTAL 0.68 mg/dL (0.2-1.3); C-REACTIVE PROTEIN 14.4 mg/dL (0.0-0.9); CKMB 4.2 U/L (0.0-3.6); CREATINE KINASE 90 UL (21-232); MAGNESIUM - SERUM 2.7 mg/dL (1.8-2.4); PROTEIN - SERUM 9.8 g/dL (6.4-8.2); THYROID STIMULATING HORMONE 0.24 uIU/mL (0.36-3.74)
[2020-01-15 07:02] LABS: FERRITIN 1674 ng/mL (3-244)
[2020-01-15 07:17] LABS: UDS - AMPHET NEGATIVE QUAL (NEGATIVE); UDS - BARB NEGATIVE QUAL (NEGATIVE); UDS - BENZO NEGATIVE QUAL (NEGATIVE); UDS - COCAINE NEGATIVE QUAL (NEGATIVE); UDS - OPIATE POSITIVE QUAL (NEGATIVE); UDS - PCP NEGATIVE QUAL (NEGATIVE); UDS - THC NEGATIVE QUAL (NEGATIVE)
[2020-01-15 07:23] LABS: TROPONIN-I 0.933 ng/mL (0.000-0.060)
[2020-01-15 07:35] LABS: BILIRUBIN NEGATIVE (NEGATIVE); KETONE SMALL mg/dL (NEGATIVE); NITRITE NEGATIVE (NEGATIVE); UROBILINOGEN NORMAL mg/dL (< 2)
[2020-01-15 07:36] LABS: BACTERIA FEW HPF (NONE SEEN); EPITHELIAL CELLS NSEEN /hpf (0-5); WHITE CELLS - URINE 0-5 HPF (0-1)
[2020-01-15 08:11] LABS: PLATELET ESTIMATE DECREASED
[2020-01-15] MEDS ORDERED: PROAIR HFA8.5 G1 INH (11:05)
[2020-01-15] MEDS ORDERED: ASPIRIN81 MG PO (11:06)
[2020-01-15] MEDS ORDERED: STOOL SOFTENER100 M1 PO (11:08)
[2020-01-15] MEDS ORDERED: DILAUDID2 MG PO (11:09)
[2020-01-15] MEDS ORDERED: MYRBETRIQ25 MG PO (11:10)
[2020-01-15] MEDS ORDERED: MIRAPEX0.5 MG PO (11:11)
--- NOTE | 2020-01-15 11:21 | NUR ---
PT ON WAITINGLIST FOR HEART MONITOR. PT'S SON REQUESTIOSN HOME MEDS BE RESTARTED BECAUSE PT AHS NOT AHD HIS ANXIETY MEDS OR KAREN MEDS SPECIFICALLY. SPOKE WITH SHUN VARGHESE AND HE STATES HE WILL LOOK AT THEM.
--- NOTE | 2020-01-15 12:51 | NUR ---
PT PULLED OUT LEFT FA 20G IV. INSERTED RIGHT FA 20G IV.
[2020-01-15] MEDS ORDERED: MILK OF MAGNESI30 ML PO (13:03)
--- NOTE | 2020-01-15 13:15 | NUR ---
CALLED AND SPOKE WITH MIKE IN LAB AND SHE STATES THEY WILL USE THE URINE THAT WAS ALREADY COLLECTED FOR URINE CX.
[2020-01-15 13:32] LABS: % SATURATION 55 % (15-55); IRON 108 ug/dl (35-150); TOTAL IRON BIND CAPACITY 195 ug/dl (260-445); UNSAT IRON BIND CAPACITY 87 ug/dl (150-375)
--- NOTE | 2020-01-15 15:08 | NUR ---
PT STILL ANXIOUS AND AGIATED AFTER RECEVING ATIVAN IV. PT PULLING AT IV AND DISROBING AND VERY RESTLESS. PT GRABBING AND PULLING STAFF. PT COVID NEG AND TRANSFERED TO ROOM 2106.
--- NOTE | 2020-01-15 15:19 | NUR ---
PT STILL ANXIOUS AND AGIATED AFTER RECEVING ATIVAN IV. PT PULLING AT IV AND DISROBING AND VERY RESTLESS. PT GRABBING AND PULLING STAFF. PT COVID NEG AND TRANSFERED TO ROOM 2105. CALLED AND SPOKE WITH SHUN VARGHESE AND HE STATES TO ORDE A ONE TIME ATIVAN O.5MG IV ONE TIME NOW AND MORPHINE 2MG IV ONE TIME NOW AND TO SEE IF THAT HELPS. I VERBALIZED UNDERSTANDING.
--- NOTE | 2020-01-15 17:44 | NUR ---
PT STILL PULLING AT TUBING BUT NOT BEING AGGRESSIVE. PTS FAMILY MEMBER AT BEDSIDE. BED LOW. CL IN REACH. STEPHANIE ALARM ON.
--- NOTE | 2020-01-15 19:00 | NUR ---
REPORT RECEIVED, WILL CONTINUE POC. PATIENT IS ALERT BUT CONFUSED AND RESTLESS. NO S/S OF DISTRESS OBSERVED, RR EVEN AND UNLABORED ON 3.5L O2 VIA NC. PATIENT HAS DISROBED AND WILL NOT KEEP GOWN ON. PIV TO RT FA, PATENT, WRAPPED IN COBAN. IV FLUIDS PAUSED DUE TO PATIENTS INABILITY TO STOP PULLING ON IV TUBING. NO OTHER NEED EXPRESS. CL IN REACH, BED LOCKED AND LOWERED. DAUGHTER AT BEDSIDE. WILL CTM.
--- NOTE | 2020-01-15 20:30 | NUR ---
PATIENT IS INCONTINENT OF BM AND URINE. BED CHANGED, PERICARE PERFORMED, CREAM APPLIED, LINENS CHANGED.
--- NOTE | 2020-01-16 02:36 | NUR ---
PATIENT'S DAUGHTER AT [facility] REQUESTING MORE ATIVAN. PATIENT IS GETTING A LITTLE AGITATED AND IS RESTLESS. ADMINISTERED PRN ATIVAN PER ORDERS.
[2020-01-16 04:00] VITALS: BP 170/79
[2020-01-16 06:29] LABS: BASOPHILS 0.5 % (0-2); EOSINOPHILS 0.2 % (0-7); HEMATOCRIT 26.9 % (42.0-54.0); HEMOGLOBIN 8.7 g/dL (13.5-17.5); LYMPHOCYTES 22.1 % (15-50); MCH 29.2 pg (26.0-34.0); MCHC 32.3 g/dL (31.0-37.0); MCV 90.3 fL (80.0-100.0); MEAN PLATELET VOLUME 9.8 fL (7.4-10.4); MONOCYTES 3.5 % (2-11); NEUTROPHILS 71.7 % (40-80); PLATELET COUNT 111 10x3/uL (130-400); RBC 2.98 10x6/uL (4.20-6.10); RDW 17.2 % (11.5-14.5)
[2020-01-16 06:38] LABS: WBC 6.6 10x3/uL (4.8-10.8)
[2020-01-16 06:58] LABS: ALBUMIN 2.8 g/dL (3.4-5.0); ALKALINE PHOSPHATASE 101 U/L (30-120); BILIRUBIN - TOTAL 0.66 mg/dL (0.2-1.3); C-REACTIVE PROTEIN 11.9 mg/dL (0.0-0.9); CALCIUM 11.9 mg/dL (8.5-10.1); CARBON DIOXIDE 33.4 mmol/L (21.0-32.0); CHLORIDE - SERUM 104 mmol/L (98-107); CREATININE - SERUM 2.6 mg/dL (0.6-1.3); GLUCOSE 121 mg/dL (74-106); MAGNESIUM - SERUM 2.6 mg/dL (1.8-2.4); PHOSPHOROUS 4.9 mg/dL (2.5-4.9); POTASSIUM - SERUM 3.3 mmol/L (3.5-5.1); PROTEIN - SERUM 10.3 g/dL (6.4-8.2); SODIUM 141 mmol/L (136-145); eGFR NON AFRICAN AMERICAN 25 mL/min (90-120)
[2020-01-16 07:04] LABS: ALT (SGPT) 32 U/L (10-68); CALC OSMOLALITY 299 mosm/kg (275-300); CREATINE KINASE 1209 UL (21-232); UREA NITROGEN 63 mg/dL (7-18)
[2020-01-16 07:06] LABS: TROPONIN-I 37.284 ng/mL (0.000-0.060)
[2020-01-16 09:43] LABS: CKMB 71.8 U/L (0.0-3.6)
[2020-01-16 09:44] LABS: CREATINE KINASE 1115 UL (21-232); TROPONIN-I 34.189 ng/mL (0.000-0.060)
--- NOTE | 2020-01-16 12:52 | NUR ---
THERE ARE TWO PEOPLE IN THE ROOM. A FEMALE AND MALE. I CALLED ADMIN AND TALKED TO DONELL WHO STATES THAT ONLY TWO PEOPLE CAN BE IN THE ROOM THEY ARE (FAMILY) DECIDING IF HOSPICE OR NOT. I RELAYED THIS INFORMATION TO THE PEOPLE IN THE ROOM. ONE IS THE DAUGHTER AND ONE IS THE NEPHREW. HE GOT UPSET WITH ME AND STATES, "THIS IS BLACK AND WHITE, NO [place] AREA" I WAS TRYNG TO EXPLAIN THE RULES. I CALLED DONELL WITH ADMIN BACK AND GOT THE OKAY FOR THE , CELESTE AND THE DAUGHTER TO BE IN THE ROOM AND THE MAN WAS HEADED ALREADY OUT. I ASKED THE DAUGHTER IF SHE NEEDED TO GO GET HER AND SHE SAID NO.
--- NOTE | 2020-01-16 13:08 | MORECARE ---
CASE MANAGEMENT DISCHARGE SUMMARY PATIENT: AN JONES UNIT: [id number] ADM DATE: 01/15/20 AGE: 79 : 41 SEX: M ROOM/BED: D.2106 AUTHOR: VIKTORIA LEY PHYSICIAN: REFERRING PHYSICIAN: FANI STAPLETON DO DATE OF SERVICE: 01/16/20 Discharge Plan Patient Name: AN JONES [facility] [facility] 1940 Planned Disposition: Home with Hospice Anticipated Discharge Date: Discharge Date: Expected LOS: Initial Reviewer: [email or web address] Initial Review Date: 01/16/2020 Generated: 01/16/20 2:07 pm DCPIA - Discharge Planning Initial Assessment Updated by [email or web address]: Treva Monreal on 01/16/20 1:07 pm * Is the patient Alert and Oriented? No * PCP Dr. Stapleton * Pharmacy [facility] * Preadmission Environment Home with Family * ADLs Total Dependent * Equipment Hospital Bed * List name and contact numbers for known caregivers / representatives who currently or will assist patient after discharge: Katie Jones - spouse - [phone] Susanna Barahona - DTR - [phone] * Verbal permission to speak to the caregivers and representatives has been obtained from the patient. Yes * Community resources currently utilized None * Additional services required to return to the preadmission environment? Yes * Can the patient safely return to the preadmission environment? Yes * Has this patient been hospitalized within the prior 30 days at any hospital? No External Providers External Provider: [facility] *(provides inpt [facility] Next Contact Date: Service Request Date: Service Type: Resolution: Reviewer: Comments: Patient Name: AN JONES Page [phone] at 1308 All edits/amendments must be made on the electronic document DICTATION DATE: 01/16/20 1308 CONTINUOUS IMPROVEMENT FACILITATOR: TUAN 01/16/20 1308 RPT#: [id number] DC DATE: STATUS: ADM IN [facility] [address] [place] [address] END OF REPORT
--- NOTE | 2020-01-16 13:15 | MORECARE ---
CASE MANAGEMENT DISCHARGE SUMMARY PATIENT: AN JONES UNIT: [id number] ADM DATE: 01/15/20 AGE: 79 : 41 SEX: M ROOM/BED: D.2106 AUTHOR: JIL,DOC PHYSICIAN: REFERRING PHYSICIAN: FANI STAPLETON DO DATE OF SERVICE: 01/16/20 Discharge Plan Patient Name: AN JONES Facility: [facility]:[place] : 1940 Planned Disposition: Home with Hospice Anticipated Discharge Date: Discharge Date: Expected LOS: Initial Reviewer: [email or web address] Initial Review Date: 01/16/2020 Generated: 01/16/20 2:15 pm Comments DCP- Discharge Planning Updated by [email or web address]: Treva Monreal on 01/16/20 12:[address] Patient Name: AN JONES Admission Status: ER Accout number: [id number] Admission Date: 01-15-2020 : 1940 Admission Diagnosis: Attending: FANI STAPLETON Current LOS: 1 Anticipated DC Date: Planned Disposition: Home with Hospice Primary Insurance: [facility] MEDICARE SOLUTIONS Discharge Planning Comments: CM received hospice order. I went to the room and spoke with daughter, Susanna. She states that [facility] is already making a hospice referral. States they would like her father to return home on hospice. I called [facility] and July tells me referral has been made to [facility]. I called Jose at [facility] and she states she just got off the phone with [facility] about referral. I faxed clinical and fs to [facility]. They will get ahold of family to admit. CM will continue to follow and assist with discharge planning/needs. Inventory Coordinator: Treva Monreal DCPIA - Discharge Planning Initial Assessment Updated by [email or web address]: Treva Monreal on 01/16/20 1:07 pm * Is the patient Alert and Oriented? No * PCP Dr. Stapleton * Pharmacy [facility] * Preadmission Environment Home with Family * ADLs Total Dependent * Equipment Hospital Bed * List name and contact numbers for known caregivers / representatives who currently or will assist patient after discharge: Katie Jones - spouse - [phone] Susanna Barahona - DTR - [phone] * Verbal permission to speak to the caregivers and representatives has been obtained from the patient. Yes * Community resources currently utilized None * Additional services required to return to the preadmission environment? Yes * Can the patient safely return to the preadmission environment? Yes * Has this patient been hospitalized within the prior 30 days at any hospital? No Last DP export: 01/16/20 12:08 p Patient Name: AN JONES Page 01005 at 1315 All edits/amendments must be made on the electronic document DICTATION DATE: 01/16/20 1315 M48/M60 TANK DRIVER: TUAN 01/16/20 1315 RPT#: [id number] DC DATE: STATUS: ADM IN [facility] [address] [place] [address] END OF REPORT
--- NOTE | 2020-01-16 15:37 | MORECARE ---
CASE MANAGEMENT DISCHARGE SUMMARY PATIENT: AN JONES UNIT: [id number] ADM DATE: 01/15/20 AGE: 79 : 41 SEX: M ROOM/BED: D.2106 AUTHOR: VIKTORIA LEY PHYSICIAN: REFERRING PHYSICIAN: FANI STAPLETON DO DATE OF SERVICE: 01/16/20 Discharge Plan Patient Name: AN JONES Facility: [facility]:[place] : 1940 Planned Disposition: Home with Hospice Anticipated Discharge Date: Discharge Date: Expected LOS: Initial Reviewer: [email or web address] Initial Review Date: 01/16/2020 Generated: 01/16/20 4:36 pm Comments DCP- Discharge Planning Updated by [email or web address]: Treva Monreal on 01/16/20 2:[address] Jose with [facility] has come to evaluate patient. CM will continue to follow and assist with discharge planning/needs. DCP- Discharge Planning Updated by [id number]: Treva Monreal on 01/16/20 12:[address] Patient Name: AN JONES Admission Status: ER Accout number: [id number] Admission Date: 01-15-2020 : 1940 Admission Diagnosis: Attending: FANI STAPLETON Current LOS: 1 Anticipated DC Date: Planned Disposition: Home with Hospice Primary Insurance: [facility] MEDICARE SOLUTIONS Discharge Planning Comments: CM received hospice order. I went to the room and spoke with daughter, Susanna. She states that [facility] is already making a hospice referral. States they would like her father to return home on hospice. I called [facility] and July tells me referral has been made to [facility]. I called Jose at [facility] and she states she just got off the phone with [facility] about referral. I faxed clinical and fs to [facility]. They will get ahold of family to admit. CM will continue to follow and assist with discharge planning/needs. Industrial Illuminating Engineer: Treva Monreal DCPIA - Discharge Planning Initial Assessment Updated by [id number]: Treva Monreal on 01/16/20 1:07 pm * Is the patient Alert and Oriented? No * PCP Dr. Stapleton * Pharmacy [facility] * Preadmission Environment Home with Family * ADLs Total Dependent * Equipment Hospital Bed * List name and contact numbers for known caregivers / representatives who currently or will assist patient after discharge: Katie Jones - spouse - [phone] Susanna Barahona - DTR - [phone] * Verbal permission to speak to the caregivers and representatives has been obtained from the patient. Yes * Community resources currently utilized None * Additional services required to return to the preadmission environment? Yes * Can the patient safely return to the preadmission environment? Yes * Has this patient been hospitalized within the prior 30 days at any hospital? No Coverage Notice Reviewer: [id number] Ahmet Monreal Notice Issued Date-Time: 01/16/2020 13:10 Notice Type: Patient Choice Letter Notice Delivered To: Family Member Relationship to Patient: Daughter Batter Scaler Name: Susanna Barahona Delivery Method: HAND - Hand Delivered Irma Days: Prior Verbal Notification: Recipient Understood Notice: Yes Recipient Signature: Yes Med Rec Note Co-signed by Attending: Coverage Notice Comment: RAMÓN for [facility] Last DP export: 01/16/20 12:15 p Patient Name: AN JONES Page 21990 at 1537 All edits/amendments must be made on the electronic document DICTATION DATE: 01/16/201535 RANGE AID: TUAN 01/16/201535 RPT#: [id number] DC DATE: STATUS: ADM IN [facility] [address] [place] [address] END OF REPORT
--- NOTE | 2020-01-16 17:54 | NUR ---
DAUGHTER IS AT BEDSIDE, [facility] IS CALLED.
[2020-01-16 20:00] VITALS: BP 161/98
--- NOTE | 2020-01-17 09:40 | MORECARE ---
CASE MANAGEMENT DISCHARGE SUMMARY PATIENT: AN JOENS UNIT: [id number] ADM DATE: 01/15/20 AGE: 79 : 41 SEX: M ROOM/BED: D.2106 AUTHOR: JIL,DOC PHYSICIAN: REFERRING PHYSICIAN: FANI STAPLETON DO DATE OF SERVICE: 01/17/20 Discharge Plan Patient Name: AN JONES Facility: [facility]:[place] : 1940 Planned Disposition: Home with Hospice Anticipated Discharge Date: Discharge Date: 01/16/2020 Expected LOS: Initial Reviewer: [email or web address] Initial Review Date: 01/16/2020 Generated: 01/17/20 10:39 am Comments DCP- Discharge Planning Updated by [email or web address]: Treva Monreal on 01/16/20 2:[address] Jose with [facility] has come to evaluate patient. CM will continue to follow and assist with discharge planning/needs. DCP- Discharge Planning Updated by [email or web address]: Treva Monreal on 01/16/20 12:[address] Patient Name: AN JONES Admission Status: ER Accout number: [id number] Admission Date: 01-15-2020 : 1940 Admission Diagnosis: Attending: FANI STAPLETON Current LOS: 1 Anticipated DC Date: Planned Disposition: Home with Hospice Primary Insurance: [facility] MEDICARE SOLUTIONS Discharge Planning Comments: CM received hospice order. I went to the room and spoke with daughter, Susanna. She states that [facility] is already making a hospice referral. States they would like her father to return home on hospice. I called [facility] and July tells me referral has been made to [facility]. I called Jose at [facility] and she states she just got off the phone with [facility] about referral. I faxed clinical and fs to [facility]. They will get ahold of family to admit. CM will continue to follow and assist with discharge planning/needs. Menagerie Caretaker: Treva Monreal DCPIA - Discharge Planning Initial Assessment Updated by [email or web address]: Treva Monreal on 01/16/20 1:07 pm * Is the patient Alert and Oriented? No * PCP Dr. Stapleton * Pharmacy [facility] * Preadmission Environment Home with Family * ADLs Total Dependent * Equipment Hospital Bed * List name and contact numbers for known caregivers / representatives who currently or will assist patient after discharge: Katie Jones - spouse - [phone] Susanna Barahona - DTR - [phone] * Verbal permission to speak to the caregivers and representatives has been obtained from the patient. Yes * Community resources currently utilized None * Additional services required to return to the preadmission environment? Yes * Can the patient safely return to the preadmission environment? Yes * Has this patient been hospitalized within the prior 30 days at any hospital? No Coverage Notice Reviewer: [id number] Ahmet Monreal Notice Issued Date-Time: 01/16/2020 13:10 Notice Type: Patient Choice Letter Notice Delivered To: Family Member Relationship to Patient: Daughter Monorail Operator Name: Susanna Barahona Delivery Method: HAND - Hand Delivered Irma Days: Prior Verbal Notification: Recipient Understood Notice: Yes Recipient Signature: Yes Med Rec Note Co-signed by Attending: Coverage Notice Comment: RAMÓN for [facility] Last DP export: 01/16/20 2:37 p Patient Name: AN JONES Page 13124 at 0940 All edits/amendments must be made on the electronic document DICTATION DATE: 01/17/20938 POT ROOM TAPPER: TUAN 01/17/20938 RPT#: [id number] DC DATE:01/16/20 STATUS: DIS IN [facility] [address] [place] [address] END OF REPORT
== END 2020-01-16 21:35 | disposition home health service (06) | DRG 280 ==
LOC: D.ER 05:16 → D.M2 08:15
PROVIDERS: Family Medicine; Internal Medicine Hematology & Oncology; ADMIT Family Medicine; ATTEND Family Medicine
DX: I21.4 Non-ST elevation (NSTEMI) myocardial infarction (principal); J96.01 Acute respiratory failure with hypoxia; G93.41 Metabolic encephalopathy; C90.00 Multiple myeloma not having achieved remission; C79.51 Secondary malignant neoplasm of bone; J98.11 Atelectasis; G20 Parkinson's disease; D69.6 Thrombocytopenia, unspecified; D63.0 Anemia in neoplastic disease; I12.9 Hypertensive chronic kidney disease with stage 1 through stage 4 chronic kidney disease, or unspecified chronic kidney disease; N18.3 Chronic kidney disease, stage 3 (moderate); I48.91 Unspecified atrial fibrillation; I25.10 Atherosclerotic heart disease of native coronary artery without angina pectoris; E78.5 Hyperlipidemia, unspecified; F02.80 Dementia in other diseases classified elsewhere, unspecified severity, without behavioral disturbance, psychotic disturbance, mood disturbance, and anxiety; Z86.73 Personal history of transient ischemic attack (TIA), and cerebral infarction without residual deficits